=== PATIENT | male | born 1945 | race Caucasian/White ===

== ENCOUNTER 2016-08-14 00:14 | Inpatient (IN) | payer BC, OTHER ==
[~2016-08-14] VITALS: Ht 188 cm; Wt 94.5 kg
[2016-08-15] VITALS (7 sets, daily range): BP systolic 129–167; BP diastolic 64–84; PULSE 67–81; TEMP 36.9–37.5; O2SAT 90–93; Ht 188 cm; Wt 94.5 kg
[2016-08-15] MEDS ORDERED: AMLO-110 PO (01:35)
[2016-08-15] MEDS ORDERED: ZOLPIDEM TARTRATE 5 MG TAB PO PRN ×2 (02:00)
[2016-08-15] MEDS ORDERED: DiphenhydrAMINE HCL 50 MG/ML VIAL IV PRN (02:00)
[2016-08-15] MEDS ORDERED: ALUMINUM/MAGNESIUM/SIMETH (MAALOX MAX) 30 ML UDC PO PRN (02:00)
[2016-08-15] MEDS ORDERED: MAGNESIUM HYDROXIDE SUSP 30 ML UDC PO PRN (02:00)
[2016-08-15] MEDS ORDERED: PROMETHAZINE HCL INJ 12.5 MG in SODIUM CHLORIDE 0.9% 50ML 50 ML IV PRN (02:00)
[2016-08-15] MEDS ORDERED: MoRPHine SULFATE 2 MG/ML CARP IV PRN (02:00)
[2016-08-15] MEDS ORDERED: ACETAMINOPHEN 325 MG TAB PO PRN ×2 (02:00)
[2016-08-15] MEDS ORDERED: ONDANSETRON INJ 2 MG/ML 2 ML VIAL IV PRN (02:00)
[2016-08-15] MEDS ORDERED: LORAZEPAM 2 MG/ML 1 ML VIAL IV PRN ×2 (02:00)
[2016-08-15] MEDS ORDERED: VANCOMYCIN INJ 1,000 MG in SODIUM CHLORIDE 0.9% 250ML 250 ML IV STA (02:05)
[2016-08-15] MEDS ORDERED: OSELTAMIVIR PHOSPHATE 75 MG CAP PO STA (02:08)
[2016-08-15] MEDS ORDERED: LORAZEPAM INJ 1 MG in SYRINGE 0.5 ML IV PRN (02:15)
[2016-08-15] MEDS ORDERED: LORAZEPAM INJ 0.5 MG in SYRINGE 0.25 ML IV PRN (02:15)
[2016-08-15] MEDS ORDERED: PIPERACILL/TAZOBAC IV 3.375 GM in DEXTROSE 5% 100ML 100 ML IV STA (02:16)
[2016-08-15] MEDS ORDERED: VANCOMYCIN INJ 2,000 MG in SODIUM CHLORIDE 0.9% 500ML 500 ML IV STA (02:17)
[2016-08-15] MEDS ORDERED: VANCOMYCIN CONSULT ACTIVE PRN (02:30)
[2016-08-15] MEDS ORDERED: PIPERACILL/TAZOBAC CONSULT ACTIVE PRN (02:30)
--- NOTE | 2016-08-15 03:44 | History and Physical ---
History & Physical Date & Time of Service: Aug 15, 2016 at 03:35 Chief Complaint: Scrotal Cellulitis, Orchitis Primary Care Physician: Jimmy Archer PA-C History of Present Illness Source: patient The patient is a 70-year-old male who presented to [facility] with 6 days of testicular pain initially was gradual in onset and since that time his become constant and severe, involving first the right testicle and than the left. He was seen by his PCP 6 days ago, and was placed on topical nystatin for what was thought to be genital candidiasis. He has no dysuria, hematuria, urinary frequency or urgency. He's had no penile discharge. Social History Smoking Status: Never Smoker Smokeless Tobacco Use: No Alcohol Use: none Drug Use: none Occupational Status: retired Multi-Drug Resistant Organisms History of MDRO: No Allergies Coded Allergies: No Known Allergies (Unverified , 08/15/16) Home Medications Scheduled Amlodipine (Norvasc), 5 MG PO DAILY Review of Systems The patient denies chest pain, palpitations, shortness of breath, cough, lower extremity swelling, vision change, hearing change, sore throat, fevers, chills, sweats, weight change, vomiting, blood in urine or stool, dysuria, urinary frequency or urgency, lightheadedness, dizziness, headache, memory loss, rash, abnormal bruising or bleeding, imbalance, focal or generalized weakness, numbness or tingling in arms or legs, arthralgias or myalgias, back or neck pain , night sweats, or allergy symptoms. The review of systems is otherwise negative other than for that already noted above, and at least 10 systems have been reviewed. Physical Exam Vital Signs Date Time Temp Pulse Resp B/P Pulse Ox O2 Delivery O2 Flow Rate FiO2 08/15/16 01:00 37.5 81 20 167/67 93 Room Air The patient is awake, well-developed and adequately nourished, alert and oriented 3, normocephalic and atraumatic, lying in bed and in no acute distress. HEENT--PERRL, EOMI, mucous membranes and oropharynx dry. Neck--supple, no JVD or bruits, thyroid normal, trachea midline, no adenopathy. Heart--normal S1 and S2, no extra beats, no murmurs, rubs or gallops. Lungs--clear bilaterally with good air movement, no respiratory distress, no accessory muscle use. Abdomen--normal bowel sounds and soft, nontender and nondistended, no hernias or masses, no organomegaly. Extremities--no cyanosis, clubbing or edema. There are good distal pulses b/l. Dermatologic--scrotal sac bilaterally with diffuse erythema. Follicular rash bilateral groin toward upper thigh and suprapubic areas Neurologic--cranial nerves II through XII grossly intact, motor and sensory examination normal. Rheumatologic--normal range of motion, nontender, muscles and joints. Psychiatric--normal affect. Impression Assessment and Plan Scrotal cellulitis/orchitis/folliculitis--patient is admitted to the medical surgical floor as a transfer patient from [facility]. I did ask ED physician there to start Vanco IV and Zosyn IV prior to transfer, and they were able to start Zosyn IV there. He'll be continued on vancomycin IV per renal dosing and Zosyn IV. I've ordered a testicular ultrasound assess for possible orchitis and/or testicular mass. Depending upon results of that study, will determine if urology needs to be involved. We will start Lotrisone cream twice a day. Hypertension--continue amlodipine 5 mg by mouth daily. Influenza A--start Tamiflu 75 mg by mouth twice a day. Bacterial conjunctivitis right eye--continue ofloxacin ophthalmic solution 1 drop OPB twice a day. Level of Care Med/Surg Advanced Directives Existing Advance Directive: No Existing Living Will: No Existing Power of Acid Pumper: No Resuscitation Status FULL RESUSCITATION VTE Prophylaxis VTE Risk Assessment Done? Y/N: Yes Risk Level: Moderate Given or contraindicated: SCD's
[2016-08-15 07:05] LABS: BASO % 0.4 %; BASO ABS # 0.02 K/uL (0-0.2); COMPLETE YES; EOS % 0.9 %; HEMATOCRIT 37.3 % (42-52); LYMPH % 23.2 %; LYMPH ABS # 1.27 K/uL (1.2-3.4); MEAN CELL VOLUME 86.5 fL (80-100); MEAN CORPUSCULAR HEMOGLOBIN 29.9 pg (25-34); MEAN CORPUSCULAR HGB CONC 34.6 g/dl (32-36); MEAN PLATELET VOLUME 9.9 fL (7.4-10.4); MONO % 12.8 %; NEUT % 62.7 %; PLATELET COUNT 117 K/uL (130-400); RED BLOOD COUNT 4.31 M/uL (4.7-6.1); WHITE BLOOD COUNT 5.48 K/uL (4.8-10.8)
[2016-08-15 07:36] LABS: BUN/CREATININE RATIO 13.7 (10-20); CREATININE 1.3 mg/dl (0.60-1.40); POTASSIUM 3.9 mmol/L (3.5-5.1)
[2016-08-15] MEDS: CLOTRIMAZOLE/BETAMETHASONE CR 15 GM TUBE EXT SCH ×2 (08:22→21:02)
[2016-08-15] MEDS: OFLOXACIN 0.3% OP SOLN 5 ML BTL OP SCH ×2 (08:22→21:01)
[2016-08-15] MEDS: PIPERACILL/TAZOBAC IV 3.375 GM in DEXTROSE 5% 100ML IV SCH ×3 (08:22→23:55)
[2016-08-15] MEDS: AMLODIPINE BESYLATE 5 MG TAB PO SCH (08:23)
--- NOTE | 2016-08-15 08:23 | Pharmacy Progress Note ---
Pharmacy Antibiotic Consult Date of Service: Aug 15, 2016. Pharmacy Dosing Scope Pharmacy is consulted to initiate VANCOMYCIN / ZOSYN IV dosing therapy, order appropriate labs and adjust drug dose/frequency. Subjective The patient is a 70 year old male admitted on Aug 15, 2016 at 01:04. Objective Height (Feet): 6 Height (Inches): 2.00 Weight (Kilograms): 94.500 Lab Results (24hrs): Laboratory Tests Test 08/15/16 04:44 08/15/16 06:44 BUN/Creatinine Ratio 13.7 Blood Urea Nitrogen 18 mg/dl Creatinine 1.30 mg/dl White Blood Count 5.48 K/uL Red Blood Count 4.31 M/uL Hemoglobin 12.9 g/dL Hematocrit 37.3 % Mean Corpuscular Volume 86.5 fL Mean Corpuscular Hemoglobin 29.9 pg Mean Corpuscular Hemoglobin Concent 34.6 g/dl Platelet Count 117 K/uL Mean Platelet Volume 9.9 fL Neutrophils (%) (Auto) 62.7 % Lymphocytes (%) (Auto) 23.2 % Monocytes (%) (Auto) 12.8 % Eosinophils (%) (Auto) 0.9 % Basophils (%) (Auto) 0.4 % Neutrophils # (Auto) 3.44 K/uL Lymphocytes # (Auto) 1.27 K/uL Monocytes # (Auto) 0.70 K/uL Eosinophils # (Auto) 0.05 K/uL Basophils # (Auto) 0.02 K/uL Assessment & Plan 70yo male admitted with scrotal cellulitis, ordered VANCOMYCIN and ZOSYN. VANCOMYCIN: * Loading dose: VANCOMYCIN 2000mg (~21mg/kg) IV X 1 dose then VANCOMYCIN 1400mg (~15mg/kg) IV every 16 hours. * Estimated Pk parameters: Vd ~0.7 L/kg ke ~0.054 t1/2 ~13 hours * Renal function is relatively good (SCr 1.3, CrCl ~60 ml/min), however unsure what baseline SCr is to know if this is elevated from baseline. * Will assess renal function daily and adjust dose if needed. * Goal trough level estimate: between 15 - 20 mcg/mL. * Trough level has been ordered for: @ 0130. Pharmacy will continue to follow and will adjust dose/frequency as necessary. Thank you
--- NOTE | 2016-08-15 08:38 | DIAGNOSTIC IMAGING REPORT ---
SCROTAL ULTRASOUND CLINICAL HISTORY: Orchitis, cellulitis COMPARISON STUDY: None. TECHNIQUE: Grayscale and color and duplex Doppler sonography of the scrotum was performed. FINDINGS: The right testis measures 3.9 x 2.4 x 2.5 cm and the left measures 4.1 x 2.9 x 3.6 cm. Color flow within each testis is symmetric. There is no testicular mass. There are several epididymal cysts. There is no convincing evidence for epididymitis. There is a dilated left-sided rete testis. A small right hydrocele is noted. There is a large complex left hydrocele. Edema and increased vascularity of the scrotal skin is noted. IMPRESSION: 1. Unremarkable sonographic appearance of the testes. 2. Complex large left hydrocele. A spermatocele could appear similar. 3. Scrotal wall thickening and increased vascularity which may reflect cellulitis. Electronically signed by: Chano Churchill M.D. 08/15/2016 8:37 AM Dictated Date/Time: 08/15/2016 8:34 AM
[2016-08-15 10:05] LABS: CREATININE 1.2 mg/dl (0.60-1.40)
--- NOTE | 2016-08-15 12:57 | Progress Note ---
Progress Note Pt transferred from [facility] earlier this morning with scrotal cellulitis vs orchitis and folliculitis. Positive influenza A. Saw and examined patient a few hours after admission. He reports not feeling well but could not elaborate on why, just reports general malaise. He also complains of fevers and chills. He admits to a non-productive cough but otherwise denies any wheezing or shortness of breath. He denies any scrotal or testicular pain. He denies any itchiness. The patient denies sweats, chest pain, palpitations, claudication, wheezing, shortness of breath, nausea, vomiting, abdominal pain, dysuria, hematuria, urinary retention, paralysis, weakness, numbness and tingling. Physical exam pertinent for conjunctional injection of right eye with visible crusts and ectropion. Erythema and follicular rash in groin area, in intertriginous folds and out to thighs. Scrotum erythematous and edematous, tender to palpation on right side. No penile discharge or lesions. Pt also has mild crackles in base of left lung, otherwise clear to auscultation. No other pertinent exam findings Pt afebrile and otherwise stable. Testicular ultrasound shows complex large left hydrocele vs spermatocele. Scrotal wall thickening and increased vascularity which may reflect cellulitis. Testes sonographically unremarkable. A/P: Continue current treatment for scrotal cellulitis, folliculitis, influenza, conjunctivitis. Tamiflu will be started this evening. Large complex hydrocele is concerning for possible infection, will continue both vancomycin and Zosyn IV. Day #1 of abx. (Eli Mancilla ., PAKennethC) seen in f/u to Sonia Mancilla's f/u from Dr Phoenix's early AM admission feeling better, breathing is OK, notes testicular swelling and pain already feeling better discussed flu proph guidelines and suggested family check in with PCP to see if oseltamivir proph appropriate making sure tamiflu started daylin, if not already, otherwise as above (Larry Saleem D.O.)
[2016-08-15] MEDS: VANCOMYCIN INJ 1,400 MG in SODIUM CHLORIDE 0.9% 500ML 500 ML IV SCH (17:35)
[2016-08-15] MEDS: OSELTAMIVIR PHOSPHATE 75 MG CAP PO SCH (21:01)
[2016-08-16 06:21] LABS: BASO % 0.5 %; BASO ABS # 0.02 K/uL (0-0.2); COMPLETE YES; HEMATOCRIT 38.8 % (42-52); IG% 0.2 %; LYMPH % 27.7 %; LYMPH ABS # 1.14 K/uL (1.2-3.4); MEAN CELL VOLUME 84.2 fL (80-100); MEAN CORPUSCULAR HEMOGLOBIN 29.7 pg (25-34); MEAN CORPUSCULAR HGB CONC 35.3 g/dl (32-36); MEAN PLATELET VOLUME 9.8 fL (7.4-10.4); MONO % 11.7 %; NEUT % 58.9 %; PLATELET COUNT 128 K/uL (130-400); RED BLOOD COUNT 4.61 M/uL (4.7-6.1); WHITE BLOOD COUNT 4.11 K/uL (4.8-10.8)
[2016-08-16 06:52] LABS: CALCIUM 8.3 mg/dl (8.5-10.1); CREATININE 1.2 mg/dl (0.60-1.40); MAGNESIUM 2.3 mg/dl (1.8-2.4)
[2016-08-16 07:59] VITALS: BP 144/87; PULSE 64; TEMP 36.8; O2SAT 93
[2016-08-16 08:09] VITALS: O2SAT 93
[2016-08-16] MEDS: PIPERACILL/TAZOBAC IV 3.375 GM in DEXTROSE 5% 100ML IV SCH ×2 (08:24→15:32)
[2016-08-16] MEDS: CLOTRIMAZOLE/BETAMETHASONE CR 15 GM TUBE EXT SCH ×2 (08:25→20:34)
[2016-08-16] MEDS: OSELTAMIVIR PHOSPHATE 75 MG CAP PO SCH ×2 (08:25→20:35)
[2016-08-16] MEDS: AMLODIPINE BESYLATE 5 MG TAB PO SCH (08:25)
[2016-08-16] MEDS: OFLOXACIN 0.3% OP SOLN 5 ML BTL OP SCH ×2 (08:25→20:34)
[2016-08-16] MEDS: VANCOMYCIN INJ 1,400 MG in SODIUM CHLORIDE 0.9% 500ML 500 ML IV SCH (10:19)
[2016-08-16 16:57] VITALS: BP 149/79; PULSE 60; TEMP 36.5; O2SAT 93
--- NOTE | 2016-08-16 18:17 | Progress Note ---
Subjective Date of Service: Aug 16, 2016. Subjective Pt evaluation today including: conversation w/ patient, physical exam, chart review, lab review, review of studies Review of Systems Constitutional: No chills, No fatigue, No fever, No problem reported, No see HPI, No sweats, No weakness, No weight loss Eyes: No diplopia, No discharge, No eye pain, No problem reported, No redness, No see HPI, No worsening of vision ENT: No dental problems, No hearing loss, No nasal symptoms, No problem reported, No see HPI, No sore throat, No tinnitus, No trouble swallowing, No unusual epistaxis Respiratory: No cough, No dyspnea at rest, No dyspnea on exertion, No hemoptysis, No problem reported, No see HPI, No shortness of breath, No sputum, No wheezing Cardiac: No PND, No chest pain, No claudication, No edema, No orthopnea, No palpitations, No problem reported, No see HPI Abdomen: No GI bleeding, No constipation, No diarrhea, No nausea, No pain, No problem reported, No see HPI, No vomiting Musculoskeletal: No calf pain, No joint pain, No muscle pain, No problem reported, No see HPI, No swelling Male : + problem reported (cellulititis and scrotal swelling ), No dysuria, No hematuria, No incontinence, No nocturia more than once/night, No see HPI, No sexual dysfunction, No slowing stream, No urinary frequency Neurologic: No balance problems, No memory loss, No numbness/tingling, No paralysis, No problem reported, No see HPI, No vertigo, No weakness Heme: No abnormal bleeding/bruising, No clotting problems, No night sweats, No problem reported, No see HPI, No swollen lymph nodes Skin: No bleeding, No color change, No itch, No new/changing skin lesions, No problem reported, No rash, No see HPI Medications Current Inpatient Medications Medications (Trade) Dose Ordered Sig/Perri Route Start Time Stop Time Status Last Admin Dose Admin Acetaminophen (Tylenol Tab) 650 mg Q4H PRN PO 08/15/16 02:00 09/14/16 01:59 Zolpidem Tartrate (Ambien Tab) 5 mg HSZ PRN PO 08/15/16 02:00 09/14/16 01:59 Amlodipine Besylate (Norvasc Tab) 5 mg DAILY PO 08/15/16 09:00 09/14/16 08:59 08/16/16 08:25 5 MG Magnesium Hydroxide (Milk Of Magnesia Susp) 30 ml Q6H PRN PO 08/15/16 02:00 09/14/16 01:59 Diphenhydramine HCl (Benadryl Inj) 25 mg Q4H PRN IV 08/15/16 02:00 09/14/16 01:59 Al Hydrox/Mg Hydrox/ Simethicone 15 ml 15 ml Q4H PRN PO 08/15/16 02:00 09/14/16 01:59 Promethazine HCl/ Sodium Chloride (Phenergan Inj/ Nss 50ml) 50.5 ml @ 202 mls/hr Q4H PRN IV 08/15/16 02:00 09/14/16 01:59 Ondansetron HCl (Zofran Inj) 4 mg Q6H PRN IV 08/15/16 02:00 09/14/16 01:59 Morphine Sulfate (MoRPHine SULFATE INJ) 2 mg Q2H PRN IV 08/15/16 02:00 08/29/16 01:59 Betamethasone/ Clotrimazole (Lotrisone Crm) 1 appln BID EXT 08/15/16 09:00 09/14/16 08:59 08/16/16 08:25 1 APPLN Oseltamivir Phosphate (Tamiflu Cap) 75 mg BID PO 08/15/16 21:00 08/20/16 20:59 08/16/16 08:25 75 MG Ofloxacin 1 drops 1 drops BID OP 08/15/16 09:00 08/25/16 08:59 08/16/16 08:25 1 DROPS Lorazepam 0.5 mg/ Syringe 0.5 ml @ 0.5 mls/min Q4H PRN IV 08/15/16 02:15 09/14/16 02:14 Lorazepam/Syringe (Ativan Inj/ Syringe) 1 ml @ 1 mls/min Q4H PRN IV 08/15/16 02:15 09/14/16 02:14 Piperacillin Sod/ Tazobactam Sod (Consult) 1 ea UD PRN N/A 08/15/16 02:30 09/14/16 02:29 Vancomycin HCl 1 ea 1 ea UD PRN N/A 08/15/16 02:30 3/14/17 02:29 Piperacillin Sod/ Tazobactam Sod 3.375 gm/Dextrose 115 ml @ 28.75 mls/ hr Q8H IV 08/15/16 08:00 08/25/16 07:59 08/16/16 15:32 28.75 MLS/HR Vancomycin HCl/ Sodium Chloride (Vancomycin Inj/ Nss 500ml) 528 ml @ 200 mls/hr Q16H IV 08/15/16 18:00 08/25/16 17:59 08/16/16 10:19 200 MLS/HR Objective Vital Signs Date Time Temp Pulse Resp B/P Pulse Ox O2 Delivery O2 Flow Rate FiO2 08/16/16 16:57 36.5 60 18 149/79 93 Room Air 60 08/16/16 15:15 Room Air 08/16/16 08:09 93 Room Air 08/16/16 07:59 36.8 64 18 144/87 93 Room Air 08/16/16 07:58 Room Air 08/16/16 00:00 Room Air 08/15/16 23:15 37.2 67 18 129/64 92 Room Air 08/15/16 20:59 73 153/75 Physical Exam General Appearance: no apparent distress Eyes: normal inspection, EOMI ENT: normal ENT inspection, TMs normal Neck: supple Respiratory/Chest: chest non-tender, lungs clear, normal breath sounds, no respiratory distress, no accessory muscle use Cardiovascular: regular rate, rhythm, no edema, no gallop, no JVD, no murmur Abdomen: normal bowel sounds, non tender, soft Extremities: normal range of motion, non-tender, no pedal edema Neurologic/Psychiatric: 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, no motor/sensory deficits, alert, normal mood/affect, oriented x 3 Skin: + rash (prenium erythema and swelling) Laboratory Results Last 24 Hours Test 08/16/16 05:35 White Blood Count 4.11 K/uL Red Blood Count 4.61 M/uL Hemoglobin 13.7 g/dL Hematocrit 38.8 % Mean Corpuscular Volume 84.2 fL Mean Corpuscular Hemoglobin 29.7 pg Mean Corpuscular Hemoglobin Concent 35.3 g/dl Platelet Count 128 K/uL Mean Platelet Volume 9.8 fL Neutrophils (%) (Auto) 58.9 % Lymphocytes (%) (Auto) 27.7 % Monocytes (%) (Auto) 11.7 % Eosinophils (%) (Auto) 1.0 % Basophils (%) (Auto) 0.5 % Neutrophils # (Auto) 2.42 K/uL Lymphocytes # (Auto) 1.14 K/uL Monocytes # (Auto) 0.48 K/uL Eosinophils # (Auto) 0.04 K/uL Basophils # (Auto) 0.02 K/uL RDW Standard Deviation 38.4 fL RDW Coefficient of Variation 12.6 % Immature Granulocyte % (Auto) 0.2 % Immature Granulocyte # (Auto) 0.01 K/uL Sodium Level 142 mmol/L Potassium Level 4.0 mmol/L Chloride Level 107 mmol/L Carbon Dioxide Level 28 mmol/L Anion Gap 7.0 mmol/L Blood Urea Nitrogen 16 mg/dl Creatinine 1.20 mg/dl Est Creatinine Clear Calc Drug Dose 64.7 ml/min Estimated GFR () 69.6 Estimated GFR (Non- 60.1 BUN/Creatinine Ratio 13.0 Random Glucose 161 mg/dl Calcium Level 8.3 mg/dl Magnesium Level 2.3 mg/dl Assessment and Plan Scrotal cellulitis/orchitis/folliculitis DC Vanco IV and Zosyn IV , start CTXN and fluconazole ultrasound showed Complex large left hydrocele. A spermatocele could appear similar. Hypertension--continue amlodipine 5 mg by mouth daily. Influenza A--continue Tamiflu 75 mg by mouth twice a day. Bacterial conjunctivitis right eye--continue ofloxacin ophthalmic solution 1 drop OPB twice a day. DVT prophylaxis heparin 5000units SQ every 8H
[2016-08-16] MEDS ORDERED: CEFTRIAXONE SOD INJ 2,000 MG in DEXTROSE 5% 50ML 50 ML IV SCH ×2 (19:00→20:00)
[2016-08-16 19:25] LABS: MEAN CELL VOLUME 85.5 fL (80-100); MEAN CORPUSCULAR HEMOGLOBIN 30.5 pg (25-34); MEAN CORPUSCULAR HGB CONC 35.7 g/dl (32-36); MEAN PLATELET VOLUME 10.2 fL (7.4-10.4); PLATELET COUNT 134 K/uL (130-400); RED BLOOD COUNT 4.91 M/uL (4.7-6.1); WHITE BLOOD COUNT 5.29 K/uL (4.8-10.8)
[2016-08-16 19:33] LABS: PROTHROMBIN TIME (PATIENT) 11.1 SECONDS (9.0-12.0)
[2016-08-16] MEDS: FLUCONAZOLE 100 MG TAB PO SCH (20:53)
[2016-08-16] MEDS: HEPARIN SOD 5000 UNIT/0.5 ML CARP SQ SCH (21:32)
[2016-08-16 23:50] VITALS: BP 155/88; PULSE 55; TEMP 36.4; O2SAT 93
[2016-08-17] MEDS ORDERED: VANCOMYCIN TROUGH SCH (01:30)
[2016-08-17] MEDS: HEPARIN SOD 5000 UNIT/0.5 ML CARP SQ SCH ×2 (05:43→14:09)
[2016-08-17 06:57] VITALS: BP 178/89; PULSE 61; TEMP 36.4; O2SAT 92
[2016-08-17 07:09] LABS: BASO % 0.7 %; BASO ABS # 0.03 K/uL (0-0.2); COMPLETE YES; EOS % 1.6 %; HEMATOCRIT 40.6 % (42-52); IG% 0.2 %; LYMPH % 31.8 %; LYMPH ABS # 1.42 K/uL (1.2-3.4); MEAN CELL VOLUME 85.3 fL (80-100); MEAN CORPUSCULAR HEMOGLOBIN 29.8 pg (25-34); MEAN PLATELET VOLUME 10.2 fL (7.4-10.4); MONO % 10.5 %; NEUT % 55.2 %; PLATELET COUNT 132 K/uL (130-400); RED BLOOD COUNT 4.76 M/uL (4.7-6.1); WHITE BLOOD COUNT 4.47 K/uL (4.8-10.8)
[2016-08-17] MEDS: AMLODIPINE BESYLATE 5 MG TAB PO SCH (07:25)
[2016-08-17 07:37] LABS: BUN/CREATININE RATIO 19.3 (10-20); CALCIUM 8.7 mg/dl (8.5-10.1); MAGNESIUM 2.4 mg/dl (1.8-2.4); POTASSIUM 4.1 mmol/L (3.5-5.1)
[2016-08-17 07:40] LABS: ALB/GLOB RATIO 0.8 (0.9-2); PHOSPHORUS 3.3 mg/dl (2.5-4.9)
[2016-08-17 08:20] VITALS: BP 164/87; PULSE 61
[2016-08-17] MEDS: LACTOBACILLUS ACIDOPHILUS 1 GM PACK PO SCH ×2 (08:29→12:53)
[2016-08-17] MEDS: OSELTAMIVIR PHOSPHATE 75 MG CAP PO SCH (08:29)
[2016-08-17] MEDS: CLOTRIMAZOLE/BETAMETHASONE CR 15 GM TUBE EXT SCH (08:29)
[2016-08-17] MEDS: OFLOXACIN 0.3% OP SOLN 5 ML BTL OP SCH (08:29)
[2016-08-17] MEDS: FLUCONAZOLE 100 MG TAB PO SCH (09:50)
[2016-08-17] MEDS ORDERED: DFL100 PO (14:30)
[2016-08-17] MEDS ORDERED: CEFD1CAP14 PO (14:30)
[2016-08-17] MEDS ORDERED: TMF75 PO (14:30)
[2016-08-17] MEDS ORDERED: CLOT1CRE4 TOP (14:30)
[2016-08-17] MEDS ORDERED: LCTXP PO (14:30)
[2016-08-17] MEDS ORDERED: AMLO-114 PO (14:30)
--- NOTE | 2016-08-17 14:33 | Discharge Instructions ---
Discharge Instructions Admission Admission Date: Aug 15, 2016 at 01:04 Admission Diagnosis: Scrotal Cellulitis, Orchitis. Care Plan - Instructions: Recommended Home Diet: AHA Phase I (2gmNa/LoCho) VTE Core Measure Inpt VTE Proph given/why not?: Unfractionated heparin SQ, SCD's Follow Up Follow-Up: follow up with infectious diseases in 2 weeks as instructed Alex Mccarthy Recommendations: Call your doctor if: * Temperature above 101 degrees * Pain not relieved by pain medicine ordered * There is increased drainage or redness from any incision * You have any unanswered questions or concerns. Your Doctors Instructions noted above were prepared by provider Loren Veras.
[2016-08-17 14:42] VITALS: BP 164/87; PULSE 61; TEMP 36.4; O2SAT 92
--- NOTE | 2016-08-17 15:13 | Discharge Summary ---
Discharge Summary Admission Date: Aug 15, 2016 at 01:04 Discharge Date: Aug 17, 2016 Discharge Disposition: Home Problems/Secondary Diagnoses: scrotal cellulitis Candidal intertrigo HTN Conjunctivitis Medication Reconciliation New Medications: Amlodipine (Norvasc) 10 Mg Tab 10 MG PO DAILY for 30 Days, #30 TAB Cefdinir (Omnicef) 300 Mg Cap 300 MG PO Q12H for 10 Days, #20 CAP Clotrimazole (Topical) (Lotrimin Af) 1 % Cre 1 APPLN TOP BID for 7 Days, #24 GM 1 Refill Fluconazole (Fluconazole) 100 Mg Tab 200 MG PO QAM for 10 Days, #10 TAB Lactobacillus Acidophilus (Lactinex Granules) 1 Gm Pack 1 GM PO TIDM for 14 Days, #42 PKT Oseltamivir Phosphate (Tamiflu) 75 Mg Cap 75 MG PO BID for 2 Days, #5 CAP Discontinued Medications: Amlodipine (Norvasc) 5 Mg Tab 5 MG PO DAILY, TAB Discharge Exam Review of Systems: Constitutional: No chills, No fatigue, No fever, No problem reported, No sweats, No weakness, No weight loss ENT: No dental problems, No hearing loss, No nasal symptoms, No problem reported, No sore throat, No tinnitus, No trouble swallowing, No unusual epistaxis Respiratory: No cough, No dyspnea at rest, No dyspnea on exertion, No hemoptysis, No problem reported, No shortness of breath, No sputum, No wheezing Cardiovascular: No PND, No chest pain, No claudication, No edema, No orthopnea, No palpitations, No problem reported Abdomen: No GI bleeding, No constipation, No diarrhea, No nausea, No pain, No problem reported, No vomiting Musculoskeletal: No calf pain, No joint pain, No muscle pain, No problem reported, No swelling Genitourinary - Male: + problem reported (scrotal cellulitis) Neurologic: No balance problems, No memory loss, No numbness/tingling, No paralysis, No problem reported, No vertigo, No weakness Psychiatric: No anhedonism, No anxiety, No depression symptoms, No insomnia , No problem reported, No substance abuse Endocrine: No excessive thirst, No excessive urination, No fatigue, No problem reported Hematologic / Lymphatic: No abnormal bleeding/bruising, No clotting problems , No night sweats, No problem reported, No swollen lymph nodes Integumentary: + rash Physical Exam: General Appearance: WD/WN, no apparent distress Eyes: normal inspection, EOMI ENT: normal ENT inspection, hearing grossly normal Neck: supple Respiratory/Chest: chest non-tender, lungs clear, normal breath sounds, no respiratory distress, no accessory muscle use Cardiovascular: regular rate, rhythm, no edema, no gallop, no JVD, no murmur , normal peripheral pulses Abdomen / GI: normal bowel sounds, non tender, soft, no organomegaly, no pulsatile mass, normal rectal exam Extremities: normal inspection, normal capillary refill, no pedal edema Neurologic/Psychiatric: 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 he ws found to have the following problems; Scrotal cellulitis/orchitis/folliculitis initially started on Vanco IV and Zosyn IV , then was switched to CTXN and fluconazole and showed significant improvement ultrasound showed Complex large left hydrocele. A spermatocele could appear similar. Hypertension--increased amlodipine 10 mg by mouth daily. Influenza A--continued Tamiflu 75 mg by mouth twice a day, has 3 days left, will prescribe as an out patient Bacterial conjunctivitis right eye--continued on ofloxacin ophthalmic solution 1 drop OPB twice a day. it was prescribed by an shot examiner today he was found medically stable for discharge on Cefdinir and fluconazole he will follow up with ID in 10 days This includes examination of the patient, discharge planning, medication reconciliation, and communication with other providers. Discharge Instructions Please refer to the electronic Patient Visit Report (Discharge Instructions) for additional information.
[2016-08-17 15:31] VITALS: BP 160/91; PULSE 69; TEMP 36.3; O2SAT 91
== END 2016-08-17 16:15 | disposition home or self-care (01) | DRG 728 ==
LOC: UNDOADMIN 08-15 01:04 → C.MSW 08-15 01:04
PROVIDERS: ADMIT Hospitalist; ATTEND Internal Medicine
DX: N49.2 Inflammatory disorders of scrotum (principal); L73.9 Follicular disorder, unspecified; B37.2 Candidiasis of skin and nail; H10.9 Unspecified conjunctivitis; I10 Essential (primary) hypertension; J11.1 Influenza due to unidentified influenza virus with other respiratory manifestations; N43.3 Hydrocele, unspecified; L30.4 Erythema intertrigo; N43.40 Spermatocele of epididymis, unspecified; Z79.899 Other long term (current) drug therapy